=== PATIENT | male | born 1960 | race Caucasian/White ===

== ENCOUNTER 2022-06-29 14:25 | Outpatient (CLI) | payer OTHER, SELFPAY ==
--- NOTE | ~2022-06-29 | CT_ITS ---
EXAMINATION: CT sinus wo con DATE: 06/29/2022 14:44 INDICATION: Deviated septum. Chronic sinusitis. TECHNIQUE: Computed tomography (CT) of the paranasal sinuses was performed without intravenous contra st. Iterative reconstruction technique was employed. The dose-length product was 304.88 mGy-cm. COMPARISON: Sinuses CT 03/09/2007 FINDINGS: There is mucosal thickening in right frontal recess. There is mild mucosal thickening in th e ethmoid, sphenoid, and maxillary sinuses. There is leftward deviation of anterior nasal septum and rightward deviation of posterior nasal septum. There are bilateral Adrián cells. The ostiomeatal unit s are patent. There is extensive dental disease. IMPRESSION: 1. Mucosal thickening in the paranasal sinuses. 2. Leftward deviation of anterior nasal septum and rightward deviation of posterior nasal septum. 3. Extensive dental disease. Reviewed, dictated and finalized at location A. IMPRESSION: 1. Mucosal thickening in the paranasal sinuses. 2. Leftward deviation of anterior nasal septum and rightward deviation of poste rior nasal septum. 3. Extensive dental disease.
== END 2022-06-29 14:26 | disposition home or self-care (01) ==
PROVIDERS: PCP Family Medicine; Visit Provider Otolaryngology
DX: J32.9 Chronic sinusitis, unspecified (principal); J34.2 Deviated nasal septum; K08.9 Disorder of teeth and supporting structures, unspecified
CPT/HCPCS: 70486

== ENCOUNTER 2022-07-06 08:03 | Outpatient (CLI) | payer OTHER, SELFPAY ==
[2022-07-06 19:36] LABS: Alanine Aminotransferase 50 U/L (6-50); Albumin Level 4.5 g/dL (3.5-5.1); Alkaline Phosphatase 80 U/L (38-126); Anion Gap 8 mmol/L (8-16); Aspartate Amino Transferase 47 U/L (17-59); Bilirubin,Total 0.8 mg/dL (0.2-1.3); Blood Urea Nitrogen 15 mg/dL (9-20); Calcium 9.4 mg/dL (8.4-10.2); Carbon Dioxide 29 mmol/L (22-30); Chloride 101 mmol/L (98-107); Cholesterol 154 mg/dL (0-200); Estimated Glomerular Filt Rate > 60; Glucose 83 mg/dL (65-110); HDL Direct 27 mg/dL; Potassium 4.4 mmol/L (3.4-5.0); Sodium 138 mmol/L (137-145); Triglycerides 203 mg/dL (<150)
[2022-07-06 19:47] LABS: LDL Cholesterol Direct 85 mg/dL
[2022-07-06 19:49] LABS: Prostate Specific Antigen 0.6 ng/mL (< OR = 4.0)
== END 2022-07-06 08:04 | disposition home or self-care (01) ==
PROVIDERS: PCP Family Medicine; Visit Provider Family Medicine
DX: E78.5 Hyperlipidemia, unspecified (principal); I10 Essential (primary) hypertension; Z12.5 Encounter for screening for malignant neoplasm of prostate
CPT/HCPCS: 36415; 80053; 80061; 84153; G0103

== ENCOUNTER 2022-09-08 09:41 | Outpatient (CLI) | payer OTHER, SELFPAY ==
--- NOTE | 2022-09-08 14:45 | ECG_ITS ---
Measurements Intervals [place] Rate: 68 P: 28 NV: 187 QRS: -19 QRSD: 114 T: 40 QT: 372 QTc: 398 Interpretive Statements SINUS RHYTHM INTRAVENTRICULAR CONDUCTION DELAY DELAYED PRECORDIAL R/S TRANSITION BASELINE ARTIFACT- I, III, AVR, AVL, AVF BORDERLINE ECG NO PREVIOUS ECG AVAILABLE FOR COMPARISON Electronically Signed On 09-08-2022 15:01:35 CDT by Yoandy Mcwilliams D.O.
[2022-09-08 15:59] LABS: Anion Gap 10 mmol/L (8-16); Blood Urea Nitrogen 17 mg/dL (9-20); Calcium 9.8 mg/dL (8.4-10.2); Carbon Dioxide 29 mmol/L (22-30); Chloride 103 mmol/L (98-107); Estimated Glomerular Filt Rate > 60; Glucose 90 mg/dL (65-110); Sodium 142 mmol/L (137-145)
== END 2022-09-08 09:42 | disposition home or self-care (01) ==
PROVIDERS: Anesthesiology; PCP Family Medicine; Visit Provider Otolaryngology
DX: I10 Essential (primary) hypertension (principal); Z79.899 Other long term (current) drug therapy; Z01.818 Encounter for other preprocedural examination; I45.9 Conduction disorder, unspecified
CPT/HCPCS: 36415; 80048; 93005

== ENCOUNTER 2022-09-19 01:24 | Day surgery (SDC) | payer OTHER, SELFPAY ==
[2022-09-08 09:20] VITALS: BMI 32.5
--- NOTE | 2022-09-08 09:29 | PC.NURSE ---
Report to the Outpatient Waiting Room, entrance under the green pavilion located off [facility], at time 7:00 on date 09/19/22. Planned Procedure Time: 9:00. Time changes happen often and if your time is changed the preop area will call you the afternoon before. - You and your visitor will be asked to self-screen and do not enter if you have any COVID symptoms. - A mask is optional within the hospital at this time. Patients may have clear liquids (water, carbonated beverages, clear teas, apple juice) until 3 hours prior to surgery with a maximum of 20 ounces. - No food from midnight until time of surgery Take the following medications with a SIP of water the morning of surgery: SERTRALINE DO NOT STOP ANY OF YOUR OTHER PRESCRIPTION MEDICATIONS PRIOR TO SURGERY ?EXCEPT THE FOLLOWING Medications to discontinue per physician: SEMAGLUTIDE Date to take last dose: SKIP NEXT 2 DOSES (09/11 AND 09/18) FOLLOW INSTRUCTIONS FROM DR. VILLANUEVA REGARDING IBUPROFEN Please no make-up, nail welsh, hairspray, perfume, deodorant, or body powder the day of surgery. No jewelry (including any body piercings) or valuables the day of surgery, leave them at home. Please take a shower or bath the night before, or the morning of, surgery with an antibacterial soap. Wear comfortable, loose fitting clothing. - Jewelry must be removed prior to entering the operating room. Rings and piercings that are not removed may be cut off. - The hospital will not accept responsibility for valuables. - Please leave all valuables, including medications, at home the day of surgery. If you are going home after surgery, a licensed front load trash truck driver must drive you home. - NO public transportation without another adult if you receive anesthesia. - We recommend that an adult stay with you for 24 hours following discharge. - We also recommend that you do not drive, make important decision, drink alcoholic beverages, or take any drugs that were not prescribed by your health care provider for at least 24 hours after your discharge time. Follow any additional instructions given to you from your surgeon. If you or anyone in your household have experienced Covid symptoms in the past week, please notify your surgeon or the nurse liaison at the phone number below for possible testing. Telephone instructions given to PT - ASHVIN ARCHULETA and asked if any additional questions and then verbalized understanding. Patient advised to call surgeon office or pre surgery nurse liaison [phone] if any additional questions.
--- NOTE | 2022-09-18 08:37 | PM.IMHP ---
H&P: HPI History of Present Illness Date/Time: 09/18/22 08:37 Chief Complaint: septal deviation turbinate hypertrophy chronic sinusitis Narrative: planned surgical procedure Review of Systems Review of Systems: All systems reviewed & are unremarkable except as noted in HPI and below PMFSH Past Medical History Medical History Anxiety Chronic pain of right knee Depression Effusion, left knee GERD (gastroesophageal reflux disease) Hyperlipidemia Hypertension Left knee DJD Low testosterone in male Pes planus of both feet Primary osteoarthritis of right knee Sleep apnea Surgical History Surgical History H/O hernia repair Hx of tonsillectomy Family History Family History Other Cerebrovascular accident Family history of arthritis Hypertension Social History Social History Smoking status: Never smoker Alcohol intake: current Drinks per week: 4 Substance use: current Substance use type: marijuana Lack of Transportation: No Lack of Food: Never True Current Housing: I Have Housing Concerned About Future Housing: No Difficulty Paying Gas/Electric Bills: No Difficulty Paying for Meds: No Currently Unemployed: No Education: Trade/Vocational Certificate Difficulty w/ Childcare or Family Care: No Living arrangements: with family Additional living arrangements comments: SON Spiritual care concerns: No Meds Home Medications and Allergies Home Medications Medication Instructions Recorded Confirmed Type lisinopril 10 1 tablet PO DAILY #90 tabs 08/15/21 09/08/22 Rx mg-hydrochlorothiazide 12.5 mg tablet ropinirole 2 mg tablet 2 mg PO BID #180 tabs 07/31/22 09/08/22 Rx atorvastatin 10 mg tablet 10 mg PO DAILY #90 tabs 08/02/22 09/08/22 Rx omeprazole 40 mg capsule,delayed 40 mg PO DAILY #90 caps 08/02/22 09/08/22 Rx release sertraline 100 mg tablet 100 mg PO BID #180 tabs 08/02/22 09/08/22 Rx ibuprofen 800 mg tablet 800 mg PO DAILY 09/08/22 09/08/22 History semaglutide (weight loss) 1 mg/0.5 1 mg subcut WEEKLY 09/08/22 09/08/22 History mL subcutaneous pen injector Allergies Allergy/AdvReac Type Severity Reaction Status Date / Time No Known Allergies Allergy Verified 09/08/22 09:22 Exam Narrative: deviated septum chronic sign chronic appearing sinuses turbinate hypertrophy Assessment and Plan Assessment and plan (1) Hypertrophy of both inferior nasal turbinates: Code(s): J34.3 - Hypertrophy of nasal turbinates Status: Acute Assessment and Plan: Plan OR for image guided endoscopic bilateral maxillary antrostomies, bilateral total ethmoidectomies, right-sided frontal sinusotomy, right-sided sphenoidotomy, endoscopic assisted septoplasty, turbinate reduction with outfracture bilaterally. risks were discussed including bleeding infection damage to surrounding structures damage to any structure of the clavicles by myself damage to any structure during the induction and maintenance of anesthesia including vocal cord paralysis. CSF leak brain brain damage change in vision total blindness need for further procedures failure to resolve symptoms. Patient voiced understanding of these risks and agreed. We also discussed the need for follow-up the need for time off work and school the inherent risks of narcotic use. Septal perforation. (2) Nasal septal deviation: Code(s): J34.2 - Deviated nasal septum Status: Acute (3) Chronic sinusitis: Qualifiers: Sinusitis location: ethmoidal Qualified Code(s): J32.2 - Chronic ethmoidal sinusitis Code(s): J32.9 - Chronic sinusitis, unspecified Status: Acute
[2022-09-19] VITALS (11 sets, daily range): BP systolic 132–192; BP diastolic 75–105; PULSE 66–82; RESP 12–20; TEMP 36.8; O2SAT 94–100
[2022-09-19] MEDS: ACETAMINOPHEN 500 MG TABLET 1000 MG PO (07:07)
[2022-09-19] MEDS: LACTATED RINGERS 1,000 ML 30 ML IV CONT ×2 (07:08→11:49)
--- NOTE | 2022-09-19 07:11 | WPDANESEPPF ---
Anes - Initial Pre Proc Eval Procedure: Operation Date: 09/19/22 09:00 Proposed Procedures p Image Guided Bilateral Inferior Turbinectomy With Outfracture, Bilateral Maxillary Antrostomy Without Tissue Removal, Bilateral Total Ethmoidectomy, Right Frontal Sinusotomy, Right Sphenoidotomy Without Tissue Removal - Faustino Herrera MD s Endoscopic Septoplasty - Faustino Herrera MD Date/Time: 09/19/22 07:11 Surgeon: Faustino Herrera MD Pre Op Diagnosis: Chr Sinusitis Patient Data Age: 61 Gender: M Height: 1.96 m Weight: 125.4 kg Last Vital Signs Temp 36.8 C 09/19/22 06:50 Pulse 68 09/19/22 06:50 Resp 18 09/19/22 06:50 BP 132/85 09/19/22 06:50 Pulse Ox 97 09/19/22 06:50 O2 Del Method Room Air 09/19/22 06:50 Allergies Allergy/AdvReac Type Severity Reaction Status Date / Time No Known Allergies Allergy Verified 09/19/22 06:48 Home Medications Medication Instructions Recorded Confirmed Type lisinopril 10 1 tablet PO DAILY #90 tabs 08/15/21 09/19/22 Rx mg-hydrochlorothiazide 12.5 mg tablet ropinirole 2 mg tablet 2 mg PO BID #180 tabs 07/31/22 09/19/22 Rx atorvastatin 10 mg tablet 10 mg PO DAILY #90 tabs 08/02/22 09/19/22 Rx omeprazole 40 mg capsule,delayed 40 mg PO DAILY #90 caps 08/02/22 09/19/22 Rx release sertraline 100 mg tablet 100 mg PO BID #180 tabs 08/02/22 09/19/22 Rx ibuprofen 800 mg tablet 800 mg PO DAILY 09/08/22 09/19/22 History semaglutide (weight loss) 1 mg/0.5 1 mg subcut WEEKLY 09/08/22 09/19/22 History mL subcutaneous pen injector Patient hx anesthesia problems: none Family hx anesthesia problems: none Results Review: All pre-operative results and documents have been reviewed as part of the pre-operative evaluation. [facility] Past Medical History Medical History Anxiety Chronic pain of right knee Depression Effusion, left knee GERD (gastroesophageal reflux disease) Hyperlipidemia Hypertension Left knee DJD Low testosterone in male Pes planus of both feet Primary osteoarthritis of right knee Sleep apnea Surgical History Surgical History H/O hernia repair Hx of tonsillectomy Family History Family History Other Cerebrovascular accident Family history of arthritis Hypertension Social History Social History Smoking status: Never smoker Alcohol intake: current Drinks per week: 4 Substance use: current Substance use type: marijuana Lack of Transportation: No Lack of Food: Never True Current Housing: I Have Housing Concerned About Future Housing: No Difficulty Paying Gas/Electric Bills: No Difficulty Paying for Meds: No Currently Unemployed: No Education: Trade/Vocational Certificate Difficulty w/ Childcare or Family Care: No Living arrangements: with family Additional living arrangements comments: SON Spiritual care concerns: No Anes - Eval Final PreProcedure Day of Procedure 09/19/22 07:11 Patient weight: obese Heart: regular rate and rhythm Lungs: clear to auscultation Airway: Mallampati scale class II and special considerations poor dentition Neurological: alert and oriented Last oral intake: >/= 8 hours ASA classification: III Emergent: no Anesthetic plan: proceed Anesthesia type and monitoring: general ETT and standard monitoring Results Review: All pre-operative results and documents have been reviewed as part of the pre-operative evaluation. Informed Consent: The patient's anesthetic plan and its attendant risks and benefits were discussed with the patient/family/POA. Questions were solicited and answers provided to the satisfaction of the patient/family/POA.
--- NOTE | 2022-09-19 07:22 | WPDHPUPDATE1 ---
History and Physical Update Update Date/Time: 09/19/22 07:22 History and Physical has been reviewed, including an updated exam of the patient. There are NO changes in the patient's condition. Risks, benefits, and alternatives have been discussed and questions answered. Patient agrees to proceed with procedure.
[2022-09-19] MEDS: ceFAZolin 3 GM/D5W 100 ML 100 ML IVPB (07:32)
[2022-09-19] MEDS: LIDO 1%/EPINEPHRINE 1:100,000 50 ML VIAL INFILTRATE (08:00)
[2022-09-19] MEDS: fentaNYL CITRATE INJ (*CRX) 100 MCG/2 ML VIAL 25 MCG IV PUSH ×4 (11:54→12:23)
[2022-09-19] MEDS: hydrALAZINE HCL 20 MG/ML VIAL 5 MG IV PUSH ×2 (12:04→12:58)
--- NOTE | 2022-09-19 12:44 | W.PM.PROC2 ---
Procedure Note - Detailed Date of Procedure 09/19/22 Pre-op Diagnosis Chronic sinusitis septal deviation turbinate hypertrophy nasal obstruction nasal congestion Post-op Diagnosis Same Procedure Performed endoscopic assisted septoplasty turbinate reduction bilateral with outfracture right-sided maxillary antrostomy total ethmoidectomy frontal sinusotomy with placement of propel stent sphenoidotomy left-sided maxillary antrostomy total ethmoidectomy Surgeon Faustino Herrera MD Anesthesia General Indications see above Findings a severely deviated septum large turbinates corrected perforations on the septum on the left side and the right-sided very small non concomitant they do not oppose each other turbinates well reduced diseased mucosa in all the aforementioned sinuses. Had to drill the frontal beak a bit propel placed on the right Description of Procedure patient identified consent verified. Patient brought to the operating room. Time-out performed. General anesthesia induced endotracheal tube secured airway. Patient prepped draped positioned procedure confirmed. Second time-out performed. Image guidance initiated and confirmed. Afrin-soaked pledgets placed bilaterally allowed to sit for 5 minutes then removed. Total 15 cc 1% lidocaine 1 100,000 parts epinephrine injected in the bilateral nasal septum. Rishabh incision made left-sided left nasal septal flap elevated with 7 Faroese suction. Osteotome utilized to cross over. Right-sided nasal septal flap elevated with 7 Faroese suction. Deviated nasal septum removed combination D blade Maxime forceps Paul Vizcarra forceps and osteotome with mallet. There were small perforations not opposing each other. Conway incision closed with 3 interrupted 5 0 fast gut sutures. Turbinates the inferior ones reduced bilaterally in the submucosal plane using microdebrider turbinate blade. They were then outfractured. The mulberry tips were cauterized as well as the head entry points the microdebrider was also cauterized. Maxillary antrostomies performed with backbiter double ball tip probe image guidance and microdebrider. Widely opened ensured to connect the natural os. Total ethmoidectomies performed bilaterally with Kerrison image guidance and microdebrider as well as sphenoid punch to get very small partitions off the orbit. Or was not violated septum was not violated skull base not violated. Right sphenoidotomy performed with image guidance 1 Kerrison 3 Kerrison and sphenoid punch. There was widely opened to the floor. Posterior nasal septal artery was cauterized. Left SI right-sided frontal sinusotomies performed with image guidance 70 Faroese suction really really large osteitic frontal beak was drilled with microdebrider with high-speed boby bit. No damage to skull base. Propel stent was placed bilateral nasal passages were then copiously irrigated with sterile saline. Nova pack was placed bilaterally to stent the middle turbinates medially as well as soak up any blood. Orozco splints placed bilaterally ensured to be lateral to the middle turbinates. They were sutured anteriorly using 3-0 mattressed suture. Total blood loss about 125 cc. I performed all dictated portions procedure. There no complications. Care the patient given Anesthesiology. Patient taken to PACU. Estimated Blood Loss -125.0 Drains No Packing Yes ([place]) Pathology None sent Complications No immediate complications Condition Stable Disposition PACU [facility] Billing Surgery - Charge Forward: Surgery Billing
[2022-09-19] MEDS: oxyCODONE HCL (*CRX) 5 MG TAB IR PO (12:50)
== END 2022-09-19 13:39 | disposition home or self-care (01) ==
PROVIDERS: PCP Family Medicine; Visit Provider Otolaryngology
PROC: (CPT 31253; principal; 2022-09-19 09:00)
PROC: (CPT 30520; 2022-09-19 09:00)
DX: J32.2 Chronic ethmoidal sinusitis (principal); J34.2 Deviated nasal septum; J34.3 Hypertrophy of nasal turbinates; J34.89 Other specified disorders of nose and nasal sinuses; R09.81 Nasal congestion; I10 Essential (primary) hypertension; E78.5 Hyperlipidemia, unspecified; G47.30 Sleep apnea, unspecified; F41.9 Anxiety disorder, unspecified; K21.9 Gastro-esophageal reflux disease without esophagitis; Z79.899 Other long term (current) drug therapy; F12.90 Cannabis use, unspecified, uncomplicated; E66.9 Obesity, unspecified; Z68.32 Body mass index [BMI] 32.0-32.9, adult
CPT/HCPCS: 31253; 31256; 31287; 31255; 61782; 30520; 30140; 36415; 80048; 93005; A9270; C2625; J0330; J0360; J0690; J1100; J2250; J2405; J2704; J3010; J7120

== ENCOUNTER 2022-10-24 08:27 | Outpatient (CLI) | payer OTHER, SELFPAY ==
--- NOTE | 2022-11-10 16:13 | WPDSLEEPSTUD ---
Sleep Study Date of Study: 10/24/22 Ordering Provider: Edwar Bonilla DO Interpreting Physician: Shari Greco MD Sleep Study Type: Split Polysomnogram Height: 1.96 m Weight: 120.202 kg Body Mass Index: 31.4 Neck Circumference (inches): 18.5 [place]: 5 Reason for Sleep Study Gasping for breath at night Sleep History Vipin Sheldon is a 62-year-old man with complaints of gasping for breath at night. He has a history of apnea and has used CPAP in the past. His medical comorbidities include hypertension, GERD, restless legs syndrome and anxiety. He is having a split night study to evaluate for obstructive sleep apnea. he frequently awakens from sleep feeling short of breath. He frequently snores loudly enough that others complain about it. He frequently has difficulty sleeping with a cold. He frequently wakes up gasping for breath at night. He constantly has breathing problems at night reported to him by others. He occasionally sweats excessively at night. He does not notice his heart pounding or beating irregularly at night. He rarely falls asleep during the day, never falls asleep involuntarily or while driving. He occasionally has loss of muscle tone with strong emotion. He does not have daytime difficulties due to excessive sleepiness. He does not feel paralyzed on waking or falling asleep. He does not have vivid dreamlike scenes on waking or falling asleep. He does not feel afraid to go to sleep. He does not have nightmares. He does not have much dream recall. He rarely has racing thoughts. He rarely feels sad or depressed. He frequently has anxiety. He occasionally has muscular tension. He frequently notices parts of his body jerking. He constantly kicks during the night. He frequently has crawling and aching feelings in his legs. He rarely has any kind of leg pain at night. He rarely has jaw pain. He frequently grinds his teeth at night. He occasionally is bothered by pain during the day. He rarely is awakened by pain at night. He frequently wakes up feeling stiff in the morning with sore achy muscles. He he occasionally wakes up with pain in his neck and spine. His normal bedtime is 9:00 p.m. falling asleep within 5 minutes. He typically wakes once at night to urinate. He is able to return to sleep in 5 minutes. His wake time is 6:30 a.m.. On weekends, bedtime is later 11:00 p.m.. He wakes also on weekends at 6:30 a.m.. He estimates getting 8 hours of sleep most nights. He generally does not take naps in the afternoon or evening. A rare nap lasting 10 or 15 minutes may be refreshing. Habits: No recreational substances. [facility] Past Medical History Medical History Anxiety Chronic pain of right knee Depression Effusion, left knee GERD (gastroesophageal reflux disease) Hyperlipidemia Hypertension Left knee DJD Low testosterone in male Pes planus of both feet Primary osteoarthritis of right knee Sleep apnea Surgical History Surgical History H/O hernia repair Hx of tonsillectomy Family History Family History Other Cerebrovascular accident Family history of arthritis Hypertension Social History Social History Smoking status: Never smoker Alcohol intake: current Drinks per week: 4 Substance use: current Substance use type: marijuana Lack of Transportation: No Lack of Food: Never True Current Housing: I Have Housing Concerned About Future Housing: No Difficulty Paying Gas/Electric Bills: No Difficulty Paying for Meds: No Currently Unemployed: No Education: Trade/Vocational Certificate Difficulty w/ Childcare or Family Care: No Living arrangements: with family Additional living arrangements comments: SON Spiritual care juan
[2022-11-10 17:27] VITALS: BMI 31.4
== END 2022-10-25 05:40 | disposition home or self-care (01) ==
PROVIDERS: PCP Family Medicine; Visit Provider Family Medicine
DX: G47.33 Obstructive sleep apnea (adult) (pediatric) (principal); K21.9 Gastro-esophageal reflux disease without esophagitis; I10 Essential (primary) hypertension; E78.5 Hyperlipidemia, unspecified
CPT/HCPCS: 95811

== ENCOUNTER 2023-02-02 09:40 | Outpatient (CLI) | payer OTHER, SELFPAY ==
[2023-02-02 12:53] LABS: Cholesterol 191 mg/dL (0-200); HDL Direct 33 mg/dL; Triglycerides 183 mg/dL (<150)
[2023-02-02 13:04] LABS: LDL Cholesterol Direct 111 mg/dL
[2023-02-02 13:10] LABS: Vitamin D 25 Hydroxy 29.3 ng/mL
== END 2023-02-02 09:41 | disposition home or self-care (01) ==
LOC: ANHGOSHLAB 09:41
PROVIDERS: PCP Family Medicine; Visit Provider Family Medicine
DX: E55.9 Vitamin D deficiency, unspecified (principal); Z13.220 Encounter for screening for lipoid disorders; G47.33 Obstructive sleep apnea (adult) (pediatric)
CPT/HCPCS: 36415; 80061; 82306

== ENCOUNTER 2025-01-19 08:20 | Emergency (ER) | payer MEDICARE, SELFPAY ==
--- NOTE | 2025-01-19 08:27 | ED_ITS ---
HPI - Eye Problem General Chief complaint: Eye Problems Stated complaint: left eye irritation Time Seen by Provider: 01/19/25 08:33 Source: patient, RN notes reviewed and old records reviewed Mode of arrival: ambulatory Limitations: no limitations History of Present Illness HPI Narrative: 64-year-old male presents to the [facility] with complaints of left eye irritation. Sensitive to light. increased tearing. Patient reports that he slept with his contact in, pinched the contact to take it out shortly there after started having some irritation to the left eye. Onset (ago): hour(s) Treatments Prior to Arrival: none Related Data Patient tetanus UTD: No (2017) Home Medications ?Medication ?Instructions ?Recorded ?Confirmed ?Last Taken ?Type tadalafil 5 mg tablet 5 mg PO DAILY 03/12/2410/06 Unknown History ibuprofen 800 mg tablet mg 01/19/25 Unknown History Allergies Allergy/AdvReac Type Severity Reaction Status Date / Time No Known Allergies Allergy Verified 01/19/25 08:42 Review of Systems 2 Review of Systems: All systems reviewed & are unremarkable except as noted in HPI and below Constitutional: Constitutional: Reports no additional constitutional complaints Eyes: Eyes: Reports as per HPI, Denies blurry vision, Denies change in vision, Reports eye discharge (clear discharge), Denies dry eyes and Reports irritation ENT: Reports system reviewed and no additional complaints, except as documented Cardiovascular: Cardiovascular: Reports no additional cardiovascular complaints, Denies chest pain and Denies dyspnea Respiratory: Respiratory: Reports no additional respiratory complaints, Denies chest congestion, Denies cough and Denies dyspnea Musculoskeletal: Musculoskeletal: Reports no additional musculoskeletal complaints Integumentary/Breasts: Skin/Breast: Reports system reviewed and no additional complaints, except as docu PMFSH Past Medical History Medical History BMI 33.0-33.9,adult Left knee DJD Anxiety Sleep apnea Low testosterone in male Hyperlipidemia Depression GERD (gastroesophageal reflux disease) Hypertension Primary osteoarthritis of right knee Chronic pain of right knee Pes planus of both feet Surgical History Surgical History H/O hernia repair Hx of tonsillectomy Family History Family History Father Cerebrovascular accident Mother No problems noted. Sibling No problems noted. Other Family history of arthritis Hypertension Social History Social History Smoking status: Never smoker Second hand tobacco smoke exposure: Yes Alcohol intake: current Drinks per week: 4 Substance use: current Substance use type: marijuana Do You Feel Safe in your Home?: Yes Lack of Transportation: No Lack of Food: Never True Current Housing: I Have Housing Concerned About Future Housing: No Difficulty Paying Gas/Electric Bills: No Difficulty Paying for Meds: No Currently Unemployed: No Education: Trade/Vocational Certificate Difficulty w/ Childcare or Family Care: No Living arrangements: with family Additional living arrangements comments: SON Occupation/Education: retired Additional occupation/education comments: [employer] 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 There is no relevant family history pertinent to the patient complaint. Exam 2 Const: General: cooperative, healthy appearing, no acute distress, well developed, alert and well nourished Nutritional Appearance: well nourished and obese Orientation/consciousness: patient oriented x3 Limitations: no limitations HENMT: Head: normal to inspection Mouth: Yes Normal oral and palatal mucosa present, Yes lip normal, Yes tongue normal and Yes moist mucous membranes Eyes: General: appearance normal, both eyes and all related structures A lignment and Position: alignment normal Cornea: corneas abnormal on the left fluorescein used and abrasion; no contact lens present, without edema and with no foreign body noted Eyes/upper lids images: 1. Corneal abrasion, fluorescein uptake Neck: Neck: normal visual inspection, full ROM, no lymphadenopathy and no meningeal signs Chest: Chest palpation & inspection: normal inspection of the chest Resp: Effort & Inspection: normal respiratory effort and able to speak in complete sentences Cardio: Rate: regular rate Skin: General skin exam: normal color and no rashes or lesions noted Neuro: General: patient oriented x3, gait normal, moves all extremities and no meningeal signs Cognition (Neuro): normal cognition Speech: normal speech Gait exam (Neuro): Normal gait present Extrem: General: normal to inspection, full ROM, capillary refill normal and normal gait Psych: Appearance: grossly normal and well kempt Mental Status: mental status grossly normal Speech and movement: Normal speech and movement present and Clear speech present Affect: normal affect Attitude: cooperative Course Course Level of Care: Express Care Visit Vital Signs Vital signs: Vital Signs Temperature 98.4 F 01/19/25 08:29 Pulse Rate 79 01/19/25 08:29 Respiratory Rate 18 01/19/25 08:29 Blood Pressure 168/89 H 01/19/25 08:29 Pulse Oximetry 100 01/19/25 08:29 Oxygen Delivery Room Air 01/19/25 08:29 Temperature 98.4 F 01/19/25 08:29 Pulse Rate 79 01/19/25 08:29 Respiratory Rate 18 01/19/25 08:29 Blood Pressure 168/89 H 01/19/25 08:29 Pulse Oximetry 100 01/19/25 08:29 Oxygen Delivery Room Air 01/19/25 08:29 Reviewed MDM - Eye Problem MDM Narrative Medical decision making narrative: patient sitting in exam room. Patient is nontoxic, vitals are stable except blood pressure elevated. No treatment for hypertension, will refer back to primary care provider large corneal abrasion noted to the left lower eye. Discussed the importance of following up as soon as possible with an eye doctor for further evaluation. Prescribed antibiotic eyedrops as well as updated tetanus shot. Patient is appropriate for outpatient treatment with close follow-up Discharge instructions reviewed with patient, as well as provided in writing per nursing staff. The instructions also include specific and strict return/GO TO THE ER as well as f/u information. All questions have been answered, and the patient deny any further questions with discharge and discharge plan. Some parts of this dictation were generated by voice recognition software and may contain typographical and/or grammatical inaccuracies. Differential Diagnosis Differential diagnosis: Likely corneal abrasion, acute iritis, periorbital cellulitis, corneal ulcer and ruptured globe Critical Care Time Critical Care Time Critical Care Time: No Discharge Plan Discharge Clinical Impression: Abrasion of cornea, left, Vaccine for [id number], combined, Elevated blood pressure reading Patient Disposition: Home Condition: Stable Instructions: Corneal Abrasion (DC) Additional Instructions: today your blood pressure was 168/89. Please follow-up with your primary care provider to have this rechecked within 2 weeks. do not wear contact lenses until cleared by your eye doctor use eyedrops as prescribed Maintain good hygiene and only touch your eyes with freshly washed hands. You should follow-up with an eye doctor within the next 72 hours [place]: [place]- [phone] [facility] [phone] [place] [phone] [place]: [facility] [phone] or [phone] [facility] [phone] [facility] [phone] [facility] [phone] [facility]- [phone] Patient Language: Yakut Prescriptions: New ciprofloxacin HCl 0.3 % drops See Rx Instructions EACH EYE .COMPLEX Qty: 2.5 0RF Rx Instructions: put 1-2 drps in affected eye(s) every 2hr up to 8 times/day x2days; then 4 times/day x5days No Action ibuprofen 800 mg tablet (DME) CPAP pressure change See Rx Instructions .Route .MEDSUPPLY Qty: 1 0RF Rx Instructions: decrease CPAP pressure to 9 cm H2O tadalafil 5 mg tablet 5 mg PO DAILY atorvastatin [Lipitor] 10 mg tablet 10 mg PO DAILY Qty: 90 3RF omeprazole 20 mg capsule,delayed release(DR/EC) 20 mg PO DAILY Qty: 90 1RF Follow-up/Referrals: Linda Jones DO [Primary Care Provider, Family Practice] - 1 Week Clinical Impression: Abrasion of cornea, left; Elevated blood pressure reading Stand Alone Forms: Work/School Release IP Time of Disposition: 08:49
[2025-01-19 08:29] VITALS: BP 168/89; PULSE 79; RESP 18; TEMP 36.9; O2SAT 100
[2025-01-19] MEDS: TETANUS,DIPHTHERIA,AC PERTUSSIS ADULT (0.5 ML) BOOSTRIX IM (08:46)
[2025-01-19] MEDS: TETRACAINE HCL 0.5% OPHTH SOLN 4 ML BTL 1 DROP LEFT EYE (08:48)
[2025-01-19] MEDS: FLUORESCEIN SOD 1 MG/STRIP LEFT EYE (08:48)
== END 2025-01-19 08:58 | disposition home or self-care (01) ==
PROVIDERS: Emergency Provider Nurse Practitioner; PCP Family Medicine
DX: H18.822 Corneal disorder due to contact lens, left eye (principal); Z23 Encounter for immunization; I10 Essential (primary) hypertension; E78.5 Hyperlipidemia, unspecified; K21.9 Gastro-esophageal reflux disease without esophagitis; M17.0 Bilateral primary osteoarthritis of knee
CPT/HCPCS: 90471; 90715; 99213; G0463